=== PATIENT | male | born 1965 | race Caucasian/White ===

== ENCOUNTER 2017-01-15 00:06 | Emergency (ER) | payer MEDICARE ==
[~2017-01-15] VITALS: Ht 177.8 cm; Wt 90.0 kg
[2017-01-15] MEDS ORDERED: LORazepam 1MG TABLET PO ONE (00:30)
[2017-01-15] MEDS ORDERED: LORazepam 1MG TABLET ONE (00:34)
[2017-01-15 02:06] VITALS: BP 105/71
== END 2017-01-15 02:08 | disposition home or self-care (01) ==
LOC: ED 02:02
DX: F32.9 Major depressive disorder, single episode, unspecified (principal); F41.1 Generalized anxiety disorder; I10 Essential (primary) hypertension
CPT/HCPCS: 99284